=== PATIENT | female | born 2000 | race African-American/Black ===

== ENCOUNTER 2021-09-27 17:04 | Emergency (ER) | payer OTHER, SELFPAY ==
[2021-09-27 17:13] VITALS: BP 138/92; PULSE 94; RESP 20; TEMP 36.7; O2SAT 99
--- NOTE | 2021-09-27 17:48 | ED.DENTAL ---
HPI - Dental/Oral General Chief complaint: Dental/Oral Stated complaint: gum swelling Time Seen by Provider: 09/27/21 17:46 Source: patient Mode of arrival: ambulatory Limitations: no limitations History of Present Illness HPI Narrative: This is a 21 year old female that presents to the ER for dental pain noted since yesterday. Reports she has an area of swelling and pain around a left upper tooth. Denies fevers. MD Complaint: tooth pain Location: Tooth # (12) Related Data Allergies Allergy/AdvReac Type Severity Reaction Status Date / Time No Known Allergies Allergy Verified 09/27/21 18:01 Review of Systems Review of Systems: CONSTITUTIONAL: Denies fever ENT: Reports dentalgia All systems reviewed & are unremarkable except as noted in HPI and below PMFSH Past Medical History Medical History (Updated 09/27/21 @ 18:43 by Tatiana Arevalo PA-C) No active medical problems Social History Social History (Updated 09/27/21 @ 17:49 by Tatiana Arevalo PA-C) Smoking status: Never smoker Exam Narrative: GENERAL: Well-appearing, well-nourished, and in no acute distress. HEAD: Normocephalic, atraumatic. EYES: EOMI. ENT: Mucous membranes moist. Oropharynx without tonsillar hypertrophy exudate or other lesions. No trismus. Tooth #12 tender to palpation with an area of fluctuance consistent with abscess NECK: Supple. No adenopathy or masses. CHEST: No respiratory distress. HEART: Regular rate EXTREMITIES: Normal range of motion. No edema. SKIN: Warm, dry, no rash. NEURO: No focal deficits. Alert and oriented x3. PSYCH: Normal mood and affect Course Vital Signs Vital signs: Vital Signs Temperature 98.0 F 09/27/21 17:13 Pulse Rate 94 09/27/21 17:13 Respiratory Rate 09/27/21 17:13 Blood Pressure 138/92 H 09/27/21 17:13 Pulse Oximetry 99 09/27/21 17:13 Oxygen Delivery Room Air 09/27/21 17:13 Temperature 98.0 F 09/27/21 17:13 Pulse Rate 94 09/27/21 17:13 Respiratory Rate 09/27/21 17:13 Blood Pressure 138/92 H 09/27/21 17:13 Pulse Oximetry 99 09/27/21 17:13 Oxygen Delivery Room Air 09/27/21 17:13 Procedures Abscess I/D oral: Date of Incision: 09/27/21 Time of Incision: 18:42 Side (if applicable): left Sedation/analgesia: none Local Anesthetic: none (Cetacaine) Technique: incised with #11 blade Packing used?: none I&D Results: Pus and Blood MDM - Dental/Oral MDM Narrative Medical decision making narrative: Patient presents to the emergency department for dentalgia present since yesterday. Patient is afebrile and nontoxic-appearing. There was a small abscess adjacent to the tooth that I drained. Patient will be started on oral antibiotics. She is to follow-up with her dentist. She was given warnings to return to the ER Critical Care Time Critical Care Time Critical Care Time: No Discharge Plan Discharge Clinical Impression: Dental abscess Patient Disposition: Home, Self-Care Condition: Stable Instructions: Antibiotic Form, Dental Abscess (ED) Additional Instructions: Return if symptoms worsen or concerns: any increase in redness, swelling, pain or fever over 101 Take antibiotics as directed. Warm compresses 3 times a day for 30 minutes each. Tylenol or Ibuprofen as needed for pain Follow up with your dentist Prescriptions: New amoxicillin-pot clavulanate 875-125 mg tablet 1 tablet PO Q12H 10 Days Qty: 20 0RF Follow-up/Referrals: Miguel,MD Ko [Non-Staff] -
== END 2021-09-27 19:12 | disposition home or self-care (01) ==
PROVIDERS: Emergency Provider Emergency Medicine
DX: K04.7 Periapical abscess without sinus (principal)
CPT/HCPCS: 41800; 99283; A9270